=== PATIENT | male | born 1995 | race Caucasian/White ===

== ENCOUNTER 2017-03-02 20:28 | Emergency (ER) | payer MEDICAID ==
[~2017-03-02] VITALS: Ht 185.4 cm; Wt 132.9 kg
[2017-03-02 20:39] VITALS: BP_SYST 143
== END 2017-03-02 21:00 | disposition home or self-care (01) ==
LOC: SED 20:28
DX: H60.92 Unspecified otitis externa, left ear (principal); R03.0 Elevated blood-pressure reading, without diagnosis of hypertension; J45.909 Unspecified asthma, uncomplicated; Z88.0 Allergy status to penicillin
CPT/HCPCS: 99283

== ENCOUNTER 2018-10-12 23:56 | Emergency (ER) | payer MEDICAID ==
[~2018-10-12] VITALS: Ht 193 cm; Wt 149.7 kg
[2018-10-13 00:11] VITALS: BP_SYST 127
[2018-10-13 01:55] VITALS: BP_SYST 132
== END 2018-10-13 01:55 | disposition home or self-care (01) ==
LOC: SED 23:56
DX: L03.311 Cellulitis of abdominal wall (principal); J45.909 Unspecified asthma, uncomplicated; Z88.0 Allergy status to penicillin
CPT/HCPCS: 99281

== ENCOUNTER 2021-08-07 02:24 | Emergency (ER) | payer OTHER, MEDICAID ==
[~2021-08-07] VITALS: Ht 190.5 cm; Wt 102.1 kg
[2021-08-07 02:30] VITALS: BP_SYST 136
--- NOTE | 2021-08-07 02:30 | NUR ---
Patient triaged and placed in waiting room. VSS and patient appears in no acute distress at this time. Accompanied by FRIEND, awaiting available bed, and MD notified of need for MSE.
--- NOTE | 2021-08-07 02:50 | NUR ---
ER examining patient in the lobby.
--- NOTE | 2021-08-07 04:00 | NUR ---
Pt taken to the radiology awake via wheelchair.
[2021-08-07] MEDS ORDERED: HYDROcodone/ACETAMIN 10-325 MG TAB PO ONE (04:30)
[2021-08-07] MEDS ORDERED: DIPH-TET-PERTUS Vaccine 0.5 ML VIAL (ADACEL) I.M. ONE ×2 (06:30→06:46)
[2021-08-07] MEDS ORDERED: BACITRACIN ZINC 15 GM TOPICAL OINTMENT TP ONE (06:30)
--- NOTE | 2021-08-07 06:30 | NUR ---
Wound dressing done.Pt tolerated well.
[2021-08-07] MEDS ORDERED: BACI15OI13 TP (06:36)
[2021-08-07] MEDS ORDERED: ACET-2634 PO (06:36)
[2021-08-07] MEDS ORDERED: BACITRACIN 1 GM OINT TP ONE (06:45)
--- NOTE | 2021-08-07 07:11 | NUR ---
Report given to agnieszka hopkins
[2021-08-07] MEDS ORDERED: OXYC-128 PO (08:19)
[2021-08-07] MEDS ORDERED: OXYCODONE/ACETAMINOPHEN *10*mg/325 mg TABLET PO ONE (08:30)
--- NOTE | 2021-08-07 08:30 | NUR ---
knee immobilizer applied,wrist splint applied and pt medicated for pain tolerated well.
[2021-08-07 08:35] VITALS: BP_SYST 132
--- NOTE | 2021-08-07 08:35 | NUR ---
Patient given written and verbal discharge instructions and verbalizes understanding. ER MD discussed with patient the results and treatment provided. Patient in stable condition. ID arm band removed. Rx of norco,motrin given. Patient educated on pain management and to follow up with PMD. Pain Scale 3. Opportunity for questions provided and answered. Medication side effect fact sheet provided.
== END 2021-08-07 08:35 | disposition home or self-care (01) ==
LOC: SED 02:24
DX: S63.502A Unspecified sprain of left wrist, initial encounter (principal); S80.212A Abrasion, left knee, initial encounter; S80.211A Abrasion, right knee, initial encounter; S50.811A Abrasion of right forearm, initial encounter; J45.909 Unspecified asthma, uncomplicated; Z88.0 Allergy status to penicillin; Z79.899 Other long term (current) drug therapy; V27.4XXA Motorcycle driver injured in collision with fixed or stationary object in traffic accident, initial encounter; Y93.89 Activity, other specified; Y92.89 Other specified places as the place of occurrence of the external cause; Y99.8 Other external cause status
CPT/HCPCS: 71045; 73060-TC; 73090; 73564; 73590-TC; 90715; 99284

== ENCOUNTER 2022-07-12 11:22 | Emergency (ER) | payer MEDICAID ==
[~2022-07-12] VITALS: Ht 188 cm; Wt 99.8 kg
[~2022-07-12 11:22] MED LIST: ACET-2634 PO; BACI15OI13 TP; OXYC-128 PO
[2022-07-12 11:26] VITALS: BP_SYST 153
[2022-07-12 12:17] LABS: BASOPHILS # (AUTO) 0.1 K/uL (0.0-0.2); BASOPHILS % (AUTO) 0.7 % (0.0-2.0); EOSINOPHILS # (AUTO) 0.4 K/uL (0.0-0.4); EOSINOPHILS % (AUTO) 3.1 % (0.0-4.0); HEMATOCRIT 46.4 % (36-54); HEMOGLOBIN 15.9 g/dL (14.0-18.0); LYMPHOCYTES # (AUTO) 2.4 K/uL (1.0-5.5); LYMPHOCYTES % (AUTO) 20.4 % (20.5-51.5); MEAN CORPUSCULAR HEMOGLOBIN 29 pg (27-31); MEAN CORPUSCULAR HGB CONC 34 % (32-36); MEAN CORPUSCULAR VOLUME 86 fL (79.0-98.0); MONOCYTES # (AUTO) 0.8 K/uL (0.0-1.0); MONOCYTES % (AUTO) 6.9 % (1.7-9.3); NEUTROPHILS # (AUTO) 8.1 K/uL (1.8-7.7); NEUTROPHILS % (AUTO) 68.9 % (40.0-70.0); PLATELET COUNT (AUTO) 214 K/uL (130-430); RED BLOOD CELL COUNT(AUTO) 5.42 MIL/uL (4.2-6.2); RED CELL DISTRIBUTION WIDTH 12.4 % (9.0-15.0); WHITE BLOOD COUNT (AUTO) 11.7 K/uL (4.8-10.8)
[2022-07-12 12:38] LABS: ANION GAP 13 (5-15); CALCIUM 9.9 mg/dL (8.4-11.0); CHLORIDE 95 mmol/L (98-107); GLUCOSE 228 mg/dL (70-99); UREA NITROGEN, BLOOD 13 mg/dL (8-21)
[2022-07-12 12:40] LABS: GFR AFRICAN AMERICAN 177 mL/min (>90)
[2022-07-12 12:46] LABS: ALANINE AMINOTRANSFERASE 22 U/L (12-78); ALBUMIN 4.3 g/dL (3.4-4.8); ASPARTATE AMINOTRANSFERASE 10 U/L (10-37); TOTAL BILIRUBIN 0.5 mg/dL (0.0-1.0)
[2022-07-12] MEDS ORDERED: LORA-259 PO (13:11)
[2022-07-12 13:30] VITALS: BP_SYST 140
== END 2022-07-12 13:30 | disposition home or self-care (01) ==
LOC: SED 11:22
DX: R07.9 Chest pain, unspecified (principal); F41.9 Anxiety disorder, unspecified; F14.19 Cocaine abuse with unspecified cocaine-induced disorder; Z88.0 Allergy status to penicillin; J45.909 Unspecified asthma, uncomplicated; R21 Rash and other nonspecific skin eruption; Z79.899 Other long term (current) drug therapy
CPT/HCPCS: 36415; 71045; 80053; 84484; 85025; 93005; 99285